=== PATIENT | female | born 1980 | race Caucasian/White ===

== ENCOUNTER → 2021-01-25 | Outpatient (CLI) | payer OTHER ==
[~2021-01-25] MED LIST: AMIT25TA PO; CLON0.5T PO; GADOTERATE 7.5 MMOL/15ML VIAL. IVP ONE; METF500T16 PO; SUMA50TA3 PO; TRIA15OI TP; VENL150C PO
--- NOTE | 2021-01-25 16:22 | KCIC ---
EXAM: Brain an pituitary MRI with and without contrast. HISTORY: Hyperprolactinemia. Migraines. TECHNIQUE: Multiplanar, multisequence magnetic resonance imaging of the brain was performed prior to and following the administration of intravenous contrast. COMPARISON: None. FINDINGS: There is no restricted diffusion to suggest acute or subacute infarction. There is no susce ptibility effect to suggest hemorrhage. There is no mass effect or midline shift. There is no hydroce phalus. No suspicious white matter lesion is seen. No enhancing lesion is seen. The pituitary is norm al in size. No pituitary lesion is seen. The infundibulum is normal in position. The sella is normal in size. The orbits are unremarkable. The paranasal sinuses and mastoid air cells are unremarkable. T here are normal flow voids within the cerebral vessels. IMPRESSION: No acute intracranial finding or evidence of a pituitary adenoma. Electronically signed by: Aliya Olson MD (01/25/2021 4:20 PM) [id number]
== END ==
LOC: KCIC MRI 15:12
PROVIDERS: ATTEND Family Medicine
DX: G43.909 Migraine, unspecified, not intractable, without status migrainosus (principal)
CPT/HCPCS: 70553; A9575

== ENCOUNTER → 2021-12-17 | Outpatient (CLI) | payer OTHER ==
[~2021-12-17] MED LIST changes: -GADOTERATE 7.5 MMOL/15ML VIAL. IVP ONE
--- NOTE | 2021-12-17 15:48 | RAD ---
EXAMINATION: MRI BRAIN WO CLINICAL HISTORY: PARASOMNIA, CHRONIC MIGRAINE. TECHNIQUE: Multiplanar multisequential images obtained through the brain without intravenous contrast . COMPARISON: 01/25/2021 FINDINGS: Acute Change: No evidence of an acute intracranial process. No restricted diffusion. Hemorrhage: No evidence of acute intracranial hemorrhage. Mass Lesion/Mass Effect: No evidence of intracranial mass or extra-axial fluid collection. No signifi cant mass effect. Parenchyma: Parenchymal signal and morphology within normal limits. Ventricles: Normal caliber and morphology. Skull Base: Hypothalamic and pituitary regions grossly unremarkable. Craniocervical junction within n ormal limits. No evidence of suspicious marrow replacement process. Vasculature: Large vessel and dural venous sinus flow voids within normal limits. Other: No significant paranasal sinus disease. Mastoids clear. Orbits and extracranial soft tissues u nremarkable. IMPRESSION: No evidence of acute intracranial abnormality. Electronically signed by: Luciano Cary DO (12/17/2021 3:46 PM) [facility]
== END ==
LOC: MRI 15:01
PROVIDERS: ATTEND Family Medicine
DX: G43.709 Chronic migraine without aura, not intractable, without status migrainosus (principal); G47.50 Parasomnia, unspecified
CPT/HCPCS: 70551